=== PATIENT | male | born 1940 | race Two or more races ===

== ENCOUNTER 2018-09-24 18:32 | Inpatient (IN) | payer OTHER ==
--- NOTE | 2018-09-24 19:26 | PDOC ---
History of Present Illness - General History Source: Patient Exam Limitations: No Limitations - History of Present Illness Initial Comments: 09/24/18 20:49 The patient is a 77 year old male, with a significant PMH of HTN, Lyme disease ( diagnosed in May) and enlarged prostate, who presents to the emergency department with an episode of vertigo that occurred 2 hours ago. The patient states he bent down to get something in the bathroom when he suddenly felt like the whole room was spinning. The patient admits to losing consciousness for a few seconds, falling and apparently hitting right sided body something within the bathroom. Family found patient conscious without evidence of seizure activity or incontinence. He experienced 1 episode of vomiting after the incident. The patient states this has never happened to him before and is currently complaining of right sided rib pain. He mentions he usually takes aspirin (81 mg) everyday but didnt take it today. The patient denies chest pain, shortness of breath and headache. Denies fever, chills, nausea, vomit, diarrhea and constipation. Allergies: NKDA Past surgical history: None reported Social history: None reported PCP: None reported <Kimberly Gonzalez - Last Filed: 09/24/18 21:53> <Kristen Gil - Last Filed: 09/25/18 00:40> - General Chief Complaint: Lightheaded Stated Complaint: DIZZY Time Seen by Provider: 09/24/18 19:24 Past History <Kimberly Gonzalez - Last Filed: 09/24/18 21:53> - Past Medical History COPD: No Diabetes: Yes Disorders: Yes (BPH) HTN: Yes - Surgical History Cholecystectomy: Yes - Suicide/Smoking/Psychosocial Hx Smoking History: Never smoked Hx Alcohol Use: Yes (RARE) Drug/Substance Use Hx: No <Kristen Gil - Last Filed: 09/25/18 00:40> - Past Medical History Allergies/Adverse Reactions: Allergies Allergy/AdvReac Type Severity Reaction Status Date / Time No Known Allergies Allergy Verified 09/24/18 18:51 Home Medications: Ambulatory Orders Aspirin [Aspirin EC] 81 mg PO HS 09/24/18 Metformin HCl [Glucophage] 500 mg PO BID 09/24/18 Tamsulosin HCl [Flomax] 0.4 mg PO BID 09/24/18 Valsartan/Hydrochlorothiazide [Valsartan-Hctz 160-25 mg Tab] 1 each PO DAILY 11/11 Review of Systems - Review of Systems Able to Perform ROS?: Yes Comments:: 09/24/18 20:50 GENERAL/CONSTITUTIONAL: No fever or chills. No weakness. HEAD, EYES, EARS, NOSE AND THROAT: No change in vision. No ear pain or discharge. No sore throat. CARDIOVASCULAR: No chest pain or shortness of breath. RESPIRATORY: No cough, wheezing, or hemoptysis. GASTROINTESTINAL: No nausea, vomiting, diarrhea or constipation. GENITOURINARY: No dysuria, frequency, or change in urination. MUSCULOSKELETAL:+Rib pain SKIN: No rash NEUROLOGIC: No headache, vertigo, loss of consciousness, or change in strength/ sensation. ENDOCRINE: No increased thirst. No abnormal weight change. HEMATOLOGIC/LYMPHATIC: No anemia, easy bleeding, or history of blood clots. ALLERGIC/IMMUNOLOGIC: No hives or skin allergy. <Kimberly Gonzalez - Last Filed: 09/24/18 21:53> *Physical Exam - Vital Signs Last Vital Signs Temp Pulse Resp BP Pulse Ox 97.4 F L 46 L 16 144/72 97 09/24/18 18:33 09/24/18 18:33 09/24/18 18:33 09/24/18 18:33 09/24/18 18:33 - Physical Exam Comments: 09/24/18 20:51 GENERAL: Awake, alert, and fully oriented, in no acute distress HEAD: Non bleeding half cm partial thickness laceration to the right forehead tenderness no ecchymosis or edema EYES: PERRLA, EOMI, sclera anicteric, conjunctiva clear ENT: Auricles normal inspection, hearing grossly normal, nares patent, oropharynx clear without exudates. Moist mucosa NECK: Normal ROM, supple, no lymphadenopathy, JVD, or masses LUNGS: +Chest wall 3 cm x 4 cm edema mild tenderness to the right posterior chest from 7-9 ribs in posterior axillary line. Breath sounds equal, clear to auscultation bilaterally. No wheezes, and no crackles HEART: Regular rate and rhythm, normal S1 and S2, no murmurs, rubs or gallops ABDOMEN:+ Notable for right upper and right flank moderate tenderness no guarding rebound or mass EXTREMITIES: Normal range of motion, no edema. No clubbing or cyanosis. No cords, erythema, or tenderness NEUROLOGICAL: Cranial nerves II through XII grossly intact. Normal speech, normal gait SKIN: Warm, Dry, normal turgor, no rashes or lesions noted. <Kimberly Gonazlez - Last Filed: 09/24/18 21:53> - Vital Signs Last Vital Signs Temp Pulse Resp BP Pulse Ox 97.4 F L 46 L 16 144/72 97 09/24/18 18:33 09/24/18 18:33 09/24/18 18:33 09/24/18 18:33 09/24/18 18:33 <Kristen Gil - Last Filed: 09/25/18 00:40> Moderate Sedation - Procedure Monitoring Vital Signs: Procedure Monitoring Vital Signs Temperature 97.4 F L 09/24/18 18:33 Pulse Rate 46 L 09/24/18 18:33 Respiratory Rate 16 09/24/18 18:33 Blood Pressure 144/72 09/24/18 18:33 O2 Sat by Pulse Oximetry (%) 97 09/24/18 18:33 <Kimberly Gonzalez - Last Filed: 09/24/18 21:53> - Procedure Monitoring Vital Signs: Procedure Monitoring Vital Signs Temperature 97.4 F L 09/24/18 18:33 Pulse Rate 46 L 09/24/18 18:33 Respiratory Rate 16 09/24/18 18:33 Blood Pressure 144/72 09/24/18 18:33 O2 Sat by Pulse Oximetry (%) 97 09/24/18 18:33 <Kristen Gil - Last Filed: 09/25/18 00:40> ED Treatment Course - LABORATORY CBC & Chemistry Diagram: 09/24/18 19:30 09/24/18 19:30 - ADDITIONAL ORDERS Additional order review: Laboratory Results 09/24/18 09/24/18 09/24/18 20:00 19:30 19:30 Sodium 135 L Potassium 3.8 Chloride 104 Carbon Dioxide 25 Anion Gap 6 L BUN 25 H Creatinine 0.9 Creat Clearance w eGFR > 60 Random Glucose 152 H Calcium 8.9 Total Bilirubin 0.5 AST 32 ALT 28 Alkaline Phosphatase 52 Creatine Kinase 66 Troponin I < 0.03 Total Protein 5.7 L Albumin 3.6 Urine Color Yellow Urine Appearance Cloudy Urine pH 6.5 Ur Specific [place] >= 1.030 Urine Protein 2+ H Urine Glucose (UA) Negative Urine Ketones Trace Urine Blood 3+ H Urine Nitrite Negative Urine Bilirubin Negative Urine Urobilinogen 1.0 Ur Leukocyte Esterase Negative Urine RBC >100 Urine WBC 2-5 Ur Epithelial Cells Few 09/24/18 19:30 RBC 4.80 MCV 89.6 MCHC 33.8 RDW 13.2 MPV 9.7 Neutrophils % 80.2 Lymphocytes % 10.8 Monocytes % 7.5 Eosinophils % 1.2 Basophils % 0.3 <Kimberly Gonzalez - Last Filed: 09/24/18 21:53> - LABORATORY CBC & Chemistry Diagram: 09/24/18 19:30 09/24/18 19:30 <Kristen Gil - Last Filed: 09/25/18 00:40> Medical Decision Making - Medical Decision Making Documentation has been prepared under my direction and personally reviewed by me in its entirety. I attest that this documented accurately reflects all work, treatment, procedures and medical decision making performed by me. As noted above, this 77-year-old man with a history of hypertension/Lyme disease (diagnosed and treated a few months ago)/BPH was brought in by ambulance after an episode of vertigo and fall in the bathroom of his daughter' s home (patient lives in [place] and is visiting the area). He had a brief LOC after this severe vertigo; family did not witness the episode but was at patient 's side very quickly. He had regained consciousness prior to their arrival. No incontinence or tonic-clonic movements noted. Patient was episode of vomiting after the incident. He states that vertigo resolved very quickly ( prior to arrival of EMS). Patient's only complaint is right lower posterior back/flank discomfort. Exam as noted. 12-lead electrocardiogram is performed and evaluated by me: Sinus bradycardia at 51 bpm; intervals, wave forms and axis are all normal. No evidence of acute ST or T-wave abnormalities; no evidence of cardiac arrhythmia Laboratory evaluation notable for prerenal azotemia with BUN of 25 and creatinine of 0.9. Urinalysis shows hematuria with greater than 100 RBCs per high-power field. Noncontrast head CT/chest and abdominal/pelvic CT with IV contrast ordered 09/24/18 23:[address] reveals no evidence of acute intracranial process; no skull fractures Abdominal/pelvic CT interpreted by Imaging consumer affairs director: Displaced fractures of the right ninth and 10th ribs and nondisplaced fracture of the 11th rib. There is a circumferential right renal subcapsular hematoma that is 1.5 cm thick. 09/25/18 00:[address] Cruz; patient will be admitted telemetry bed, observation status with diagnosis of syncope/multiple rib fractures/right renal hematoma <Kristen Gil - Last Filed: 09/25/18 00:40> *DC/Admit/Observation/Transfer - Attestations Scribe Attestion: 09/24/18 20:53 Documentation prepared by Kimberly Gonzalez, acting as director medical surgical for Kristen Gil MD. <Kimberly Gonzalez - Last Filed: 09/24/18 21:53> - Discharge Dispostion Decision to Admit order: Yes <Kristen Gil - Last Filed: 09/25/18 00:40> Diagnosis at time of Disposition: Multiple rib fractures Qualifiers: Encounter type: initial encounter Fracture type: closed Laterality: right Qualified Code(s): S22.41XA - Multiple fractures of ribs, right side, initial encounter for closed fracture Renal hematoma, right Qualifiers: Encounter type: initial encounter Qualified Code(s): S37.011A - Minor contusion of right kidney, initial encounter Syncope Qualifiers: Syncope type: unspecified Qualified Code(s): R55 - Syncope and collapse - Discharge Dispostion Condition at time of disposition: Stable
[2018-09-24 20:25] LABS: BASO % 0.3 % (0-2.0); EOS % 1.2 % (0-4.5); HEMOGLOBIN 14.6 GM/dl (11.7-16.9); LYMPH % 10.8 % (8-40); MCH 30.3 pg (25.7-33.7); MCHC 33.8 g/dl (32.0-35.9); MEAN CELL VOLUME 89.6 fl (80-96); MEAN PLT VOLUME 9.7 fl (7.5-11.1); MONO % 7.5 % (3.8-10.2); NEUT % 80.2 % (42.8-82.8); PLATELET COUNT 173 K/MM3 (134-434); RDW 13.2 % (11.9-15.9)
[2018-09-24 20:33] LABS: PH,URINE 6.5 (4.5-8); URINE APPEARANCE CLOUDY; URINE BILIRUBIN Negative (NEGATIVE); URINE COLOR Yellow; URINE GLUCOSE (UA) Negative (NEGATIVE); URINE KETONE Trace (NEGATIVE); URINE LEUK ESTERASE Negative (NEGATIVE); URINE NITRITE Negative (NEGATIVE); URINE PROTEIN 2+ (NEGATIVE)
[2018-09-24 20:37] LABS: ALBUMIN 3.6 g/dl (3.5-5.0); ALK PHOS 52 U/L (32-92); ANION GAP 6 MMOL/L (8-16); BILIRUBIN,TOTAL 0.5 mg/dl (0.2-1.0); BLOOD UREA NITROGEN 25 mg/dl (7-18); CALCIUM 8.9 mg/dl (8.4-10.2); CHLORIDE 104 mmol/L (98-107); CO2 25 mmol/L (22-28); CREATININE 0.9 mg/dl (0.6-1.3); GLUCOSE,RANDOM 152 mg/dl (74-106); POTASSIUM 3.8 mmol/L (3.5-5.1); SGOT/AST 32 U/L (10-42); SGPT/ALT 28 U/L (10-40); SODIUM 135 mmol/L (136-145); TOT PROT 5.7 g/dl (6.4-8.3)
[2018-09-24 20:40] LABS: URINE RBC >100 /hpf (0-3)
[2018-09-24 20:41] LABS: EPI CELLS FEW /HPF
[2018-09-24] MEDS ORDERED: SODIUM CHLORIDE 500 ML IV STA (20:54)
[2018-09-25 01:06] VITALS: BMI 23.3
[2018-09-25] MEDS ORDERED: SODIUM CHLORIDE 1,000 ML IV SCH (02:15)
[2018-09-25] MEDS: traMADol HCL 50 MG TABLET PO PRN (04:45)
[2018-09-25] MEDS ORDERED: INSULIN SLIDING SCALE (NOVOLOG) 1 VIAL SQ SCH (07:00)
--- NOTE | 2018-09-25 07:14 | CON.CARD ---
Consult Consult Specialty:: Cardiology - History of Present Illness History of Present Illness: The patient is a 77 year old male, with a significant PMH of HTN, Lyme disease ( diagnosed in May) and enlarged prostate, who presents to the emergency department with an episode of vertigo that occurred 2 hours ago. The patient states he bent down to get something in the bathroom when he suddenly felt like the whole room was spinning. The patient admits to losing consciousness for a few seconds, falling and apparently hitting right sided body something within the bathroom. Family found patient conscious without evidence of seizure activity or incontinence. He experienced 1 episode of vomiting after the incident. The patient states this has never happened to him before and is currently complaining of right sided rib pain. He mentions he usually takes aspirin (81 mg) everyday but didnt take it today. The patient denies chest pain, shortness of breath and headache. Denies fever, chills, nausea, vomit, diarrhea and constipation. Allergies: NKDA Past surgical history: None reported Social history: None reported PCP: None reported - History Source History Provided By: Patient, Family Member, Medical Record - Past Medical History Cardio/Vascular: Yes: HTN Endocrine: Yes: Diabetes Mellitus - Alcohol/Substance Use Hx Alcohol Use: Yes (RARE) - Smoking History Smoking history: Never smoked Have you smoked in the past 12 months: No Home Medications - Allergies Allergies/Adverse Reactions: Allergies Allergy/AdvReac Type Severity Reaction Status Date / Time No Known Allergies Allergy Verified 09/24/18 18:51 - Home Medications Home Medications: Ambulatory Orders Aspirin [Aspirin EC] 81 mg PO HS 09/24/18 Metformin HCl [Glucophage] 500 mg PO BID 09/24/18 Tamsulosin HCl [Flomax] 0.4 mg PO BID 09/24/18 Valsartan/Hydrochlorothiazide [Valsartan-Hctz 160-25 mg Tab] 1 each PO DAILY 11/11 Review of Systems - Review of Systems Constitutional: reports: No Symptoms Eyes: reports: No Symptoms HENT: reports: No Symptoms Neck: reports: No Symptoms Cardiovascular: reports: No Symptoms Gastrointestinal: reports: No Symptoms Genitourinary: reports: No Symptoms Breasts: reports: No Symptoms Reported Musculoskeletal: reports: No Symptoms Integumentary: reports: No Symptoms Neurological: reports: Syncope Endocrine: reports: No Symptoms Hematology/Lymphatic: reports: No Symptoms Psychiatric: reports: No Symptoms Vital Signs: Vital Signs Temperature 98.6 F 09/25/18 07:06 Pulse Rate 63 09/25/18 07:06 Respiratory Rate 18 09/25/18 07:06 Blood Pressure 108/54 L 09/25/18 07:06 O2 Sat by Pulse Oximetry (%) 97 09/25/18 01:52 Constitutional: Yes: Well Nourished, No Distress, Calm Eyes: Yes: WNL, Conjunctiva Clear, EOM Intact HENT: Yes: WNL, Atraumatic, Normocephalic Neck: Yes: WNL, Supple, Trachea Midline Respiratory: Yes: WNL, Regular, CTA Bilaterally Gastrointestinal: Yes: WNL, Normal Bowel Sounds Renal/: Yes: WNL Cardiovascular: Yes: WNL, Regular Rate and Rhythm Musculoskeletal: Yes: WNL Extremities: Yes: WNL Integumentary: Yes: WNL Neurological: Yes: WNL, Alert, Oriented ...Motor Strength: WNL Psychiatric: Yes: WNL, Alert, Oriented - Other Data Labs, Other Data: CBC, BMP 09/24/18 19:30 09/24/18 19:30 Troponin, BNP 09/24/18 19:30 Troponin I < 0.03 Troponin, BNP 09/24/18 19:30 Troponin I < 0.03 Imaging - Results Chest X-ray: Image Reviewed (no i/e) EKG: Image Reviewed (s bradycardia at 51 o/w wnl) Problem List - Problems (1) Multiple rib fractures Code(s): S22.49XA - MULTIPLE FRACTURES OF RIBS, UNSP SIDE, INIT FOR CLOS FX Qualifiers: Encounter type: initial encounter Fracture type: closed Laterality: right Qualified Code(s): S22.41XA - Multiple fractures of ribs, right side, initial encounter for closed fracture (2) Renal hematoma, right Code(s): S37.011A - MINOR CONTUSION OF RIGHT KIDNEY, INITIAL ENCOUNTER Qualifiers: Encounter type: initial encounter Qualified Code(s): S37.011A - Minor contusion of right kidney, initial encounter (3) Syncope Code(s): R55 - SYNCOPE AND COLLAPSE Qualifiers: Syncope type: unspecified Qualified Code(s): R55 - Syncope and collapse Assessment/Plan syncope - reports bending down to bulk picker something from the floor in the bathroom, than getting up than feeling progressively more dizzy/vertigo and than fainting bradycardia on baseline ekg and telemetry multiple rib fx dm htn plan neuro consult c. duplex telemetry echo lexiscan mibi
[2018-09-25 09:23] LABS: HEMATOCRIT 36.4 % (35.4-49); HEMOGLOBIN 12.4 GM/dl (11.7-16.9); MCH 30.9 pg (25.7-33.7); MCHC 34.1 g/dl (32.0-35.9); MEAN CELL VOLUME 90.5 fl (80-96); MEAN PLT VOLUME 9.8 fl (7.5-11.1); PLATELET COUNT 154 K/MM3 (134-434); RBC 4.02 M/mm3 (4.00-5.60); RDW 13.4 % (11.9-15.9); WHITE BLOOD COUNT 7.3 K/mm3 (4.0-10.8)
[2018-09-25 09:43] LABS: ALBUMIN 3.2 g/dl (3.5-5.0); ALK PHOS 48 U/L (32-92); ANION GAP 9 MMOL/L (8-16); BILIRUBIN,TOTAL 1.1 mg/dl (0.2-1.0); BLOOD UREA NITROGEN 22 mg/dl (7-18); CALCIUM 8.6 mg/dl (8.4-10.2); CHLORIDE 103 mmol/L (98-107); CO2 25 mmol/L (22-28); CREATININE 0.8 mg/dl (0.6-1.3); GLUCOSE,RANDOM 122 mg/dl (74-106); MAGNESIUM 1.8 mg/dL (1.8-2.4); POTASSIUM 3.8 mmol/L (3.5-5.1); SGOT/AST 22 U/L (10-42); SGPT/ALT 23 U/L (10-40); SODIUM 137 mmol/L (136-145)
[2018-09-25] MEDS ORDERED: PATIENT'S OWN MEDICATION (NON-FORMULARY) (Valsartan/Hydrochlorothiazide [Valsartan-Hctz 16 PO SCH (10:00)
--- NOTE | 2018-09-25 10:07 | HP ---
CHIEF COMPLAINT:dizziness PCP: HISTORY OF PRESENT ILLNESS: The patient is a 77 year old male, with a significant PMH of HTN, DM, Lyme disease (diagnosed in May) and enlarged prostate, who presents to the emergency department with an episode of vertigo that occurred 2 hours ago. The patient states he bent down to get something in the bathroom when he suddenly felt like the whole room was spinning. The patient admits to losing consciousness for a few seconds, falling and apparently hitting right sided body something within the bathroom. He experienced 1 episode of vomiting after the incident. patient seen at bedside this morning, denies dizziness, sob, chest pain. Denies fever, chills, nausea, vomit, diarrhea and constipation. ER course was notable for: (1)CT abd pelvis rib fracture 9th and 10th (displaced), 11th (non-displaced) (2)Right renal subcapsular hematoma (3)no Leukocytosis Recent Travel: PAST MEDICAL HISTORY:HTN, BPH, DM, PAST SURGICAL HISTORY:Cholecystectomy Social History: Smoking:denies Alcohol:rarely Drugs:denies Family History: AllergiesNKDA No Known Allergies Allergy (Verified 09/24/18 18:51) HOME MEDICATIONS: Home Medications Medication Instructions Recorded Aspirin [Aspirin EC] 81 mg PO HS 09/24/18 Metformin HCl [Glucophage] 500 mg PO BID 09/24/18 Tamsulosin HCl [Flomax] 0.4 mg PO BID 09/24/18 Valsartan/Hydrochlorothiazide 1 each PO DAILY 09/24/18 [Valsartan-Hctz 160-25 mg Tab] REVIEW OF SYSTEMS CONSTITUTIONAL: Absent: fever, chills, diaphoresis, generalized weakness, malaise, loss of appetite, weight change HEENT: Absent: rhinorrhea, nasal congestion, throat pain, throat swelling, difficulty swallowing, mouth swelling, ear pain, eye pain, visual changes CARDIOVASCULAR: Absent: chest pain, syncope, palpitations, irregular heart rate, lightheadedness , peripheral edema RESPIRATORY: Absent: cough, shortness of breath, dyspnea with exertion, orthopnea, wheezing, stridor, hemoptysis GASTROINTESTINAL: Absent: abdominal pain, abdominal distension, nausea, vomiting, diarrhea, constipation, melena, hematochezia GENITOURINARY: Absent: dysuria, frequency, urgency, hesitancy, hematuria, flank pain, genital pain MUSCULOSKELETAL: Absent: myalgia, arthralgia, joint swelling, back pain, neck pain SKIN: Absent: rash, itching, pallor HEMATOLOGIC/IMMUNOLOGIC: Absent: easy bleeding, easy bruising, lymphadenopathy, frequent infections ENDOCRINE: Absent: unexplained weight gain, unexplained weight loss, heat intolerance, cold intolerance NEUROLOGIC: Absent: headache, focal weakness or paresthesias, dizziness, unsteady gait, seizure, mental status changes, bladder or bowel incontinence PSYCHIATRIC: Absent: anxiety, depression, suicidal or homicidal ideation, hallucinations. PHYSICAL EXAMINATION Vital Signs - 24 hr 09/24/18 09/24/18 09/24/18 18:33 21:00 21:29 Temperature 97.4 F L Pulse Rate 46 L Pulse Rate [ 55 L 56 L Apical] Respiratory 16 16 15 Rate Blood Pressure 144/72 Blood Pressure 153/80 148/80 [Left Arm] O2 Sat by Pulse 97 97 98 Oximetry (%) 09/25/18 09/25/18 09/25/18 00:33 01:52 04:33 Temperature 98.2 F 98.2 F 98.6 F Pulse Rate 62 62 54 L Pulse Rate [ Apical] Respiratory 20 20 20 Rate Blood Pressure 144/60 144/60 124/50 L Blood Pressure [Left Arm] O2 Sat by Pulse 97 97 Oximetry (%) 09/25/18 09/25/18 09/25/18 07:04 07:05 07:06 Temperature 98.6 F 98.6 F 98.6 F Pulse Rate 51 L 56 L 63 Pulse Rate [ Apical] Respiratory 18 18 18 Rate Blood Pressure 135/63 129/64 108/54 L Blood Pressure [Left Arm] O2 Sat by Pulse Oximetry (%) GENERAL: Awake, alert, and fully oriented, in no acute distress. HEAD: Normal with no signs of trauma. EYES: Pupils equal, round and reactive to light, extraocular movements intact, sclera anicteric, conjunctiva clear. No lid lag. EARS, NOSE, THROAT: Ears normal, nares patent, oropharynx clear without exudates. Moist mucous membranes. NECK: Normal range of motion, supple without lymphadenopathy, JVD, or masses. LUNGS: Breath sounds equal, clear to auscultation bilaterally. No wheezes, and no crackles. No accessory muscle use. HEART: Regular rate and rhythm, normal S1 and S2 without murmur, rub or gallop. ABDOMEN: Soft, nontender, not distended, normoactive bowel sounds, no guarding, no rebound, no masses. No hepatomegaly or splenomegaly. MUSCULOSKELETAL: Normal range of motion at all joints. No bony deformities or tenderness. No CVA tenderness. UPPER EXTREMITIES: 2+ pulses, warm, well-perfused. No cyanosis. No clubbing. No peripheral edema. LOWER EXTREMITIES: 2+ pulses, warm, well-perfused. No calf tenderness. No peripheral edema. NEUROLOGICAL: Cranial nerves II-XII intact. Normal speech. Normal gait. PSYCHIATRIC: Cooperative. Good eye contact. Appropriate mood and affect. SKIN: Warm, dry, normal turgor, no rashes or lesions noted, normal capillary refill. Laboratory Results - last 24 hr 09/24/18 09/24/18 09/24/18 19:30 19:30 19:30 WBC 7.0 RBC 4.80 Hgb 14.6 Hct 43.0 MCV 89.6 MCH 30.3 MCHC 33.8 RDW 13.2 Plt Count 173 MPV 9.7 Absolute Neuts (auto) 5.6 Neutrophils % 80.2 Lymphocytes % 10.8 Monocytes % 7.5 Eosinophils % 1.2 Basophils % 0.3 Sodium 135 L Potassium 3.8 Chloride 104 Carbon Dioxide 25 Anion Gap 6 L BUN 25 H Creatinine 0.9 Creat Clearance w eGFR > 60 Random Glucose 152 H Calcium 8.9 Magnesium Total Bilirubin 0.5 AST 32 ALT 28 Alkaline Phosphatase 52 Creatine Kinase 66 Troponin I < 0.03 Total Protein 5.7 L Albumin 3.6 Urine Color Urine Appearance Urine pH Ur Specific [place] Urine Protein Urine Glucose (UA) Urine Ketones Urine Blood Urine Nitrite Urine Bilirubin Urine Urobilinogen Ur Leukocyte Esterase Urine RBC Urine WBC Ur Epithelial Cells 09/24/18 09/25/18 09/25/18 20:00 06:20 06:20 WBC 7.3 RBC 4.02 Hgb 12.4 Hct 36.4 D MCV 90.5 MCH 30.9 MCHC 34.1 RDW 13.4 Plt Count 154 MPV 9.8 Absolute Neuts (auto) Neutrophils % Lymphocytes % Monocytes % Eosinophils % Basophils % Sodium 137 Potassium 3.8 Chloride 103 Carbon Dioxide 25 Anion Gap 9 BUN 22 H Creatinine 0.8 Creat Clearance w eGFR > 60 Random Glucose 122 H Calcium 8.6 Magnesium 1.8 Total Bilirubin 1.1 H AST 22 D ALT 23 Alkaline Phosphatase 48 Creatine Kinase Troponin I Total Protein 5.0 L Albumin 3.2 L Urine Color Yellow Urine Appearance Cloudy Urine pH 6.5 Ur Specific [place] >= 1.030 Urine Protein 2+ H Urine Glucose (UA) Negative Urine Ketones Trace Urine Blood 3+ H Urine Nitrite Negative Urine Bilirubin Negative Urine Urobilinogen 1.0 Ur Leukocyte Esterase Negative Urine RBC >100 Urine WBC 2-5 Ur Epithelial Cells Few ASSESSMENT/PLAN: Aurelio Franklin is a 77 year old male, with a significant PMH of HTN, DM, Lyme disease (diagnosed in May) and enlarged prostate, admitted under observation for Admitting Diagnosis Syncope Right Rib Fracture Active Problems BPH HTN DM #Syncope -tele monitoring -Cardio consult -Echo ordered -monitor labs -CT head no acute fx, intracanial process -IVF #Right rib fx 2/2 fall -inc spirometer -CT Scan abd/pelvis displaced 9 &10th fx, non-displaced 11th rib fx -pain mgt -OOB to chair #Right renal subcapsular hematoma likely constusion from fall -monitor -heparin on hold #HTN -resume home med #BPH -on flomax #DM -fingerstick monitoring -metformin on hold -ISC Disposition Requires to be observatin, Full Code Visit type - Emergency Visit Emergency Visit: Yes ED Registration Date: 09/25/18 Care time: The patient presented to the Emergency Department on the above date and was hospitalized for further evaluation of their emergent condition. - New Patient This patient is new to me today: Yes Date on this admission: 09/25/18 - Critical Care Critical Care patient: No
[2018-09-25] MEDS: INSULIN SLIDING SCALE (NOVOLOG) 1 VIAL SQ SCH ×4 (11:00→21:16)
[2018-09-25] MEDS: HYDROCHLOROTHIAZIDE 25 MG TABLET (FP) PO SCH (11:10)
[2018-09-25] MEDS: VALSARTAN 160 MG TABLET (UD) PO SCH (11:10)
[2018-09-25] MEDS: TAMSULOSIN HCL 0.4 MG CAP PO SCH ×2 (11:10→21:05)
[2018-09-25] MEDS ORDERED: ASPIRIN COATED 81 MG TABLET.EC PO SCH (22:00)
[2018-09-26] MEDS: traMADol HCL 50 MG TABLET PO PRN ×2 (05:47→13:08)
[2018-09-26] MEDS: INSULIN SLIDING SCALE (NOVOLOG) 1 VIAL SQ SCH ×4 (07:11→21:21)
[2018-09-26 08:37] LABS: URINE APPEARANCE CLEAR; URINE BILIRUBIN NEGATIVE (NEGATIVE); URINE COLOR YELLOW; URINE GLUCOSE (UA) NEGATIVE (NEGATIVE); URINE KETONE NEGATIVE (NEGATIVE)
[2018-09-26 08:38] LABS: PH,URINE 5.5 (4.5-8); URINE LEUK ESTERASE NEGATIVE (NEGATIVE); URINE NITRITE NEGATIVE (NEGATIVE); URINE PROTEIN NEGATIVE (NEGATIVE); URINE UROBILINOGEN 0.2 (0.2-1.0)
[2018-09-26] MEDS: TAMSULOSIN HCL 0.4 MG CAP PO SCH ×2 (08:40→21:21)
[2018-09-26 09:15] LABS: ANION GAP 6 MMOL/L (8-16); BLOOD UREA NITROGEN 17 mg/dl (7-18); CALCIUM 8.9 mg/dl (8.4-10.2); CHLORIDE 102 mmol/L (98-107); CO2 26 mmol/L (22-28); CREATININE 0.8 mg/dl (0.6-1.3); GLUCOSE,RANDOM 159 mg/dl (74-106); MAGNESIUM 1.9 mg/dL (1.8-2.4); POTASSIUM 3.8 mmol/L (3.5-5.1); SODIUM 134 mmol/L (136-145)
[2018-09-26 09:21] LABS: BASO % 0.3 % (0-2.0); EOS % 1.8 % (0-4.5); HEMATOCRIT 40.8 % (35.4-49); HEMOGLOBIN 13.7 GM/dl (11.7-16.9); LYMPH % 20.6 % (8-40); MCH 30.6 pg (25.7-33.7); MCHC 33.7 g/dl (32.0-35.9); MEAN CELL VOLUME 90.9 fl (80-96); MEAN PLT VOLUME 9.1 fl (7.5-11.1); MONO % 9.1 % (3.8-10.2); NEUT % 68.2 % (42.8-82.8); PLATELET COUNT 166 K/MM3 (134-434); RBC 4.49 M/mm3 (4.00-5.60); RDW 13.1 % (11.9-15.9); WHITE BLOOD COUNT 7.1 K/mm3 (4.0-10.8)
[2018-09-26 09:21] LABS: EPI CELLS FEW /HPF; URINE BACTERIA NONE SEEN /hpf (NEGATIVE); URINE WBC 0-3 (0-2)
[2018-09-26 09:23] LABS: CHOLESTEROL 142 mg/dl; HDL CHOLESTEROL 56 mg/dl (29-89); LDL CHOLESTEROL (ONLY DFH) 71 mg/dl; TRIGLYCERIDES 73 mg/dl (35-160)
[2018-09-26 09:48] LABS: ACTIVATED PTT 26.3 SECONDS (25.2-36.5)
[2018-09-26 09:53] LABS: INR 1.16 (0.82-1.09)
[2018-09-26] MEDS: HYDROCHLOROTHIAZIDE 25 MG TABLET (FP) PO SCH (09:55)
[2018-09-26] MEDS: VALSARTAN 160 MG TABLET (UD) PO SCH (09:55)
--- NOTE | 2018-09-26 10:01 | PN ---
Physical Exam: SUBJECTIVE: Patient seen and examined at bedside. Pain is better after oxycodone and tylenol. OBJECTIVE: Vital Signs Period Temp Pulse Resp BP Sys/Rob Pulse Ox Last 24 Hr 98.5 F-99.1 F 51-68 16-19 115-154/52-76 95-97 GENERAL: The patient is awake, alert, and fully oriented, in no acute distress. LUNGS: Breath sounds equal, clear to auscultation bilaterally, no wheezes, no crackles HEART: Regular rate and rhythm, S1, S2 ABDOMEN: Soft, nontender, nondistended EXTREMITIES: 2+ pulses, warm, well-perfused, no edema. NEUROLOGICAL: Cranial nerves II through XII grossly intact. Normal speech Laboratory Results - last 24 hr 09/25/18 09/25/18 09/26/18 06:45 21:07 05:44 WBC RBC Hgb Hct MCV MCH MCHC RDW Plt Count MPV Absolute Neuts (auto) Neutrophils % Lymphocytes % Monocytes % Eosinophils % Basophils % PT with INR INR PTT (Actin FS) Sodium Potassium Chloride Carbon Dioxide Anion Gap BUN Creatinine Creat Clearance w eGFR POC Glucometer 207 175 Random Glucose Calcium Magnesium Troponin I Triglycerides Cholesterol Total LDL Cholesterol HDL Cholesterol Urine Color Yellow Urine Appearance Clear Urine pH 5.5 Ur Specific [place] 1.015 Urine Protein Negative Urine Glucose (UA) Negative Urine Ketones Negative Urine Blood 3+ H Urine Nitrite Negative Urine Bilirubin Negative Urine Urobilinogen 0.2 Ur Leukocyte Esterase Negative Urine RBC 5-10 Urine WBC 0-3 Ur Epithelial Cells Few Urine Bacteria None seen 09/26/18 09/26/18 09/26/18 08:00 08:23 08:23 WBC 7.1 RBC 4.49 Hgb 13.7 Hct 40.8 MCV 90.9 MCH 30.6 MCHC 33.7 RDW 13.1 Plt Count 166 MPV 9.1 Absolute Neuts (auto) 4.9 Neutrophils % 68.2 Lymphocytes % 20.6 D Monocytes % 9.1 Eosinophils % 1.8 Basophils % 0.3 PT with INR INR PTT (Actin FS) Sodium 134 L Potassium 3.8 Chloride 102 Carbon Dioxide 26 Anion Gap 6 L BUN 17 Creatinine 0.8 Creat Clearance w eGFR > 60 POC Glucometer Random Glucose 159 H D Calcium 8.9 Magnesium 1.9 Troponin I < 0.03 Triglycerides Cholesterol Total LDL Cholesterol HDL Cholesterol Urine Color Urine Appearance Urine pH Ur Specific [place] Urine Protein Urine Glucose (UA) Urine Ketones Urine Blood Urine Nitrite Urine Bilirubin Urine Urobilinogen Ur Leukocyte Esterase Urine RBC Urine WBC Ur Epithelial Cells Urine Bacteria 09/26/18 09/26/18 08:23 08:23 WBC RBC Hgb Hct MCV MCH MCHC RDW Plt Count MPV Absolute Neuts (auto) Neutrophils % Lymphocytes % Monocytes % Eosinophils % Basophils % PT with INR 13.0 INR 1.16 PTT (Actin FS) 26.3 Sodium Potassium Chloride Carbon Dioxide Anion Gap BUN Creatinine Creat Clearance w eGFR POC Glucometer Random Glucose Calcium Magnesium Troponin I Triglycerides 73 Cholesterol 142 Total LDL Cholesterol 71 HDL Cholesterol 56 Urine Color Urine Appearance Urine pH Ur Specific [place] Urine Protein Urine Glucose (UA) Urine Ketones Urine Blood Urine Nitrite Urine Bilirubin Urine Urobilinogen Ur Leukocyte Esterase Urine RBC Urine WBC Ur Epithelial Cells Urine Bacteria Current Medications Generic Name Dose Route Start Last Admin Trade Name Freq PRN Reason Stop Dose Admin Acetaminophen 650 mg 09/26/18 15:10 09/26/18 15:56 Tylenol - PO 650 mg Q6H PRN Administration PAIN LEVEL 6-10 Hydrochlorothiazide 25 mg 09/25/18 10:00 09/26/18 09:55 Hctz - PO 25 mg DAILY STEVEN Administration Insulin Aspart 1 vial 09/25/18 07:00 Novolog Vial Sliding Scale - SQ ACHS [facility] Protocol Oxycodone HCl 5 mg 09/26/18 16:59 Roxicodone - PO Q6H PRN PAIN LEVEL 6-10 Tamsulosin HCl 0.4 mg 09/25/18 08:30 09/26/18 21:21 Flomax - PO 0.4 mg BID@0830,2200 STEVEN Administration Valsartan 160 mg 09/25/18 10:00 09/26/18 09:55 Diovan - PO 160 mg DAILY STEVEN Administration ASSESSMENT/PLAN 77 year-old male with a PMH significant for HTN, enlarged prostate and recent Lyme's disease. Admitted for multiple rib fractures following a syncopal episode and fall at home. Syncope --serial troponins negative --US carotids: no hemodynamically significant stenosis --09/26 Echo: LV normal, EF 60-65%, RV normal; mild TR; pHTN --seen and evaluated by cardiology, plan is for persantine stress, but will need urology evaluation first Multiple rib fractures --CT: acute displaced fractures right 9, 10, 11 posteriorly, and right 8,9 laterally; trace right pleural effusion --ultram not sufficient; better relief with oxycodone + tylenol --binder --bowel regimen Right renal hematoma Possible right renal cortex laceration Hematuria --CT: acute right renal hematoma 1.5cm thickness; 0.9cm focus right renal cortex may be a laceration, no definite contrast extravasation --hematuria resolved on repeat UA --h/h stable --urology consult pending Hypertension --continue valsartan, HCTZ Visit type - Emergency Visit Emergency Visit: Yes ED Registration Date: 09/25/18 Care time: The patient presented to the Emergency Department on the above date and was hospitalized for further evaluation of their emergent condition. - New Patient This patient is new to me today: Yes Date on this admission: 09/27/18 - Critical Care Critical Care patient: No
--- NOTE | 2018-09-26 11:27 | EKG ---
Test Reason : Blood Pressure : / mmHG Vent. Rate : 051 BPM Atrial Rate : 051 BPM P-R Int : 162 ms QRS Dur : 094 ms QT Int : 452 ms P-R-T Axes : 048 052 042 degrees QTc Int : 416 ms SINUS BRADYCARDIA OTHERWISE NORMAL ECG NO PREVIOUS ECGS AVAILABLE Confirmed by REBECA TREVINO MD ([id number]) on 09/26/2018 11:27:04 AM Referred By: Physician Emergency Dept Confirmed By:REBECA TREVINO MD
--- NOTE | 2018-09-26 14:48 | CON.GU ---
Consult Consult Specialty:: Referred by:: Cornelius Reason for Consultation:: R renal hematoma - History of Present Illness Chief Complaint: rib fx History of Present Illness: 77 year old male, with a significant PMH of HTN, DM, Lyme disease (diagnosed in May) and enlarged prostate, who presents to the emergency department with an episode of vertigo that occurred 2 hours ago. The patient states he bent down to get something in the bathroom when he suddenly felt like the whole room was spinning. The patient admits to losing consciousness for a few seconds, falling and apparently hitting right sided body something within the bathroom. He experienced 1 episode of vomiting after the incident as well as gross hematuria x 1 episode. patient seen at bedside this morning, denies dizziness, sob, chest pain. Denies fever, chills, nausea, vomit, diarrhea and constipation. ER course was notable for: (1)CT abd pelvis rib fracture 9th and 10th (displaced), 11th (non-displaced) (2)Right renal subcapsular hematoma (3)no Leukocytosis - History Source History Provided By: Patient, Family Member, Medical Record Limitations to Obtaining History: No Limitations - Past Medical History Cardio/Vascular: Yes: HTN Renal/: Yes: Hematuria Endocrine: Yes: Diabetes Mellitus - Alcohol/Substance Use Hx Alcohol Use: Yes (RARE) - Smoking History Smoking history: Never smoked Have you smoked in the past 12 months: No Home Medications - Allergies Allergies/Adverse Reactions: Allergies Allergy/AdvReac Type Severity Reaction Status Date / Time No Known Allergies Allergy Verified 09/24/18 18:51 - Home Medications Home Medications: Ambulatory Orders Aspirin [Aspirin EC] 81 mg PO HS 09/24/18 Metformin HCl [Glucophage] 500 mg PO BID 09/24/18 Tamsulosin HCl [Flomax] 0.4 mg PO BID 09/24/18 Valsartan/Hydrochlorothiazide [Valsartan-Hctz 160-25 mg Tab] 1 each PO DAILY 11/11 Physical Exam- Vital Signs: Vital Signs Temperature 97.7 F 09/26/18 10:00 Pulse Rate 57 L 09/26/18 13:16 Respiratory Rate 18 09/26/18 10:00 Blood Pressure 130/62 09/26/18 13:16 O2 Sat by Pulse Oximetry (%) 96 09/26/18 10:00 Renal/: Yes: CVA Tenderness - Right Kidneys: Yes: FLank Pain Right Labs: CBC, BMP 09/26/18 08:23 09/26/18 08:23 Imaging - Results Cat Scan: Report Reviewed, Image Reviewed Problem List - Problems (1) Hematuria Assessment/Plan: resolved Code(s): R31.9 - HEMATURIA, UNSPECIFIED Qualifiers: Hematuria type: gross Qualified Code(s): R31.0 - Gross hematuria (2) Renal hematoma, right Assessment/Plan: f/u renal u/s as outpt Code(s): S37.011A - MINOR CONTUSION OF RIGHT KIDNEY, INITIAL ENCOUNTER Qualifiers: Encounter type: initial encounter Qualified Code(s): S37.011A - Minor contusion of right kidney, initial encounter
[2018-09-26] MEDS ORDERED: oxyCODONE HCL 5 MG TABLET PO ONE (15:09)
[2018-09-26] MEDS ORDERED: ACETAMINOPHEN 325 MG TABLET (FP) PO PRN (15:10)
--- NOTE | 2018-09-26 16:12 | PN ---
Progress Note, Physician History of Present Illness: The patient is a 77 year old male, with a significant PMH of HTN, Lyme disease ( diagnosed in May) and enlarged prostate, who presents to the emergency department with an episode of vertigo that occurred 2 hours ago. The patient states he bent down to get something in the bathroom when he suddenly felt like the whole room was spinning. The patient admits to losing consciousness for a few seconds, falling and apparently hitting right sided body something within the bathroom. Family found patient conscious without evidence of seizure activity or incontinence. He experienced 1 episode of vomiting after the incident. The patient states this has never happened to him before and is currently complaining of right sided rib pain. He mentions he usually takes aspirin (81 mg) everyday but didnt take it today. The patient denies chest pain, shortness of breath and headache. Denies fever, chills, nausea, vomit, diarrhea and constipation. Allergies: NKDA Past surgical history: None reported Social history: None reported PCP: None reported - Current Medication List Current Medications: Active Medications Acetaminophen (Tylenol -) 650 mg PO Q6H PRN PRN Reason: PAIN LEVEL 1-5 Last Admin: 09/26/18 15:56 Dose: 650 mg Hydrochlorothiazide (Hctz -) 25 mg PO DAILY [facility] Last Admin: 09/26/18 09:55 Dose: 25 mg Insulin Aspart (Novolog Vial Sliding Scale -) 1 vial SQ [facility]; Protocol Last Admin: 09/26/18 15:54 Dose: Not Given Oxycodone HCl (Roxicodone -) 5 mg PO ONCE ONE Stop: 09/26/18 15:10 Last Admin: 09/26/18 15:16 Dose: 5 mg Tamsulosin HCl (Flomax -) 0.4 mg PO BID@0830,2200 [facility] Last Admin: 09/26/18 08:40 Dose: 0.4 mg Tramadol HCl (Ultram -) 50 mg PO Q4H PRN PRN Reason: PAIN LEVEL 6-10 Last Admin: 09/26/18 13:08 Dose: 50 mg Valsartan (Diovan -) 160 mg PO DAILY [facility] Last Admin: 09/26/18 09:55 Dose: 160 mg - Objective Vital Signs: Vital Signs Temperature 98.0 F 09/26/18 14:00 Pulse Rate 58 L 09/26/18 14:00 Respiratory Rate 18 09/26/18 14:00 Blood Pressure 120/66 09/26/18 14:00 O2 Sat by Pulse Oximetry (%) 96 09/26/18 10:00 Eyes: Yes: WNL, Conjunctiva Clear, EOM Intact HENT: Yes: WNL, Atraumatic, Normocephalic Neck: Yes: WNL, Supple, Trachea Midline Cardiovascular: Yes: WNL, Regular Rate and Rhythm Respiratory: Yes: WNL, Regular, CTA Bilaterally Gastrointestinal: Yes: WNL, Normal Bowel Sounds Genitourinary: Yes: WNL Musculoskeletal: Yes: WNL Extremities: Yes: WNL Edema: No Integumentary: Yes: WNL Neurological: Yes: WNL, Alert, Oriented ...Motor Strength: WNL Psychiatric: Yes: WNL Labs: CBC, BMP 09/26/18 08:23 09/26/18 08:23 INR, PTT INR 1.16 (0.82-1.09) 09/26/18 08:23 Problem List - Problems (1) Multiple rib fractures Code(s): S22.49XA - MULTIPLE FRACTURES OF RIBS, UNSP SIDE, INIT FOR CLOS FX Qualifiers: Encounter type: initial encounter Fracture type: closed Laterality: right Qualified Code(s): S22.41XA - Multiple fractures of ribs, right side, initial encounter for closed fracture (2) Renal hematoma, right Code(s): S37.011A - MINOR CONTUSION OF RIGHT KIDNEY, INITIAL ENCOUNTER Qualifiers: Encounter type: initial encounter Qualified Code(s): S37.011A - Minor contusion of right kidney, initial encounter (3) Syncope Code(s): R55 - SYNCOPE AND COLLAPSE Qualifiers: Syncope type: unspecified Qualified Code(s): R55 - Syncope and collapse Assessment/Plan syncope - reports bending down to flower picker something from the floor in the bathroom, than getting up than feeling progressively more dizzy/vertigo and than fainting bradycardia on baseline ekg and telemetry multiple rib fx dm htn renal hematoma c. duplex - no occlusion or stenosis plan; neuro consult telemetry echo lexiscan mibi
--- NOTE | 2018-09-26 16:50 | ECHO ---
Name: JYOTHI SULLIVAN Exam:Adult Echocardiogram Study Date: 09/26/2018 12:33 PM Age: 77 yrs Reason For Study: HTN Height: 70 in Weight: 161 lb BSA: 1.9 m2 MMode/2D Measurements & Calculations IVSd: 3.1 cm Ao root diam: 3.6 cm LVIDd: 3.8 cm LA dimension: 2.4 cm LVIDs: 2.9 cm LVPWd: 1.0 cm EDV(Teich): 63.9 ml ESV(Teich): 32.4 ml Doppler Measurements & Calculations MV E max sheba: 58.2 cm/sec MV A max sheba: 72.0 cm/sec MV dec slope: 275.0 cm/sec2 MV E/A: 0.81 MR max sheba: 448.0 cm/sec TR max sheba: 252.6 cm/sec MR max P.3 mmHg TR max P.6 mmHg PI end-d sheba: 64.1 cm/sec Procedure A complete two-dimensional transthoracic echocardiogram was performed (2D, M-mode, Doppler and color flow Doppler). Left Ventricle The left ventricle is normal in size. Left ventricular systolic function is normal. Ejection Fraction = 60- 65%. No regional wall motion abnormalities noted. Right Ventricle The right ventricle is normal size. The right ventricular systolic function is normal. Atria The left atrial size is normal. Right atrial size is normal. Mitral Valve There is mild mitral annular calcification. There is no mitral regurgitation noted. Tricuspid Valve The tricuspid valve is normal in structure and function. There is mild tricuspid regurgitation. Pulmo nary artery systolic pressure is at least 31 mmHg assuming RA pressure of 3 mmHg. Aortic Valve The aortic valve is normal in structure and function. No aortic regurgitation is present. Pulmonic Valve The pulmonic valve is not well visualized. Great Vessels The aortic root is normal size. Pericardium/Pleura There is no pericardial effusion. Interpretation Summary The left ventricle is normal in size. Left ventricular systolic function is normal. No regional wall motion abnormalities noted. Ejection Fraction = 60-65%. The right ventricular systolic function is normal. The left atrial size is normal. Right atrial size is normal. There is mild mitral annular calcification. There is mild tricuspid regurgitation. Pulmonary artery systolic pressure is at least 31 mmHg assuming RA pressure of 3 mmHg There is no pericardial effusion. Previous study is not available for comparison Maksim Penny MD 09/26/2018 04:50 PM
[2018-09-26] MEDS ORDERED: oxyCODONE HCL 5 MG TABLET PO PRN (16:59)
[2018-09-27] MEDS: INSULIN SLIDING SCALE (NOVOLOG) 1 VIAL SQ SCH ×5 (06:12→21:25)
--- NOTE | 2018-09-27 08:30 | PN ---
Physical Exam: SUBJECTIVE: Patient seen and examined OBJECTIVE: Vital Signs Period Temp Pulse Resp BP Sys/Rob Pulse Ox Last 24 Hr 97.7 F-98.9 F 51-66 18-20 93-130/52-66 96-97 GENERAL: The patient is awake, alert, and fully oriented, in no acute distress. HEAD: Normal with no signs of trauma. EYES: PERRL, extraocular movements intact, sclera anicteric, conjunctiva clear. No ptosis. ENT: Ears normal, nares patent, oropharynx clear without exudates, moist mucous membranes. NECK: Trachea midline, full range of motion, supple. LUNGS: Breath sounds equal, clear to auscultation bilaterally, no wheezes, no crackles, no accessory muscle use. HEART: Regular rate and rhythm, S1, S2 without murmur, rub or gallop. ABDOMEN: Soft, nontender, nondistended, normoactive bowel sounds, no guarding, no rebound, no hepatosplenomegaly, no masses. EXTREMITIES: 2+ pulses, warm, well-perfused, no edema. NEUROLOGICAL: Cranial nerves II through XII grossly intact. Normal speech, gait not observed. PSYCH: Normal mood, normal affect. SKIN: Warm, dry, normal turgor, no rashes or lesions noted Laboratory Results - last 24 hr 09/25/18 09/26/18 09/26/18 06:45 08:00 08:05 WBC RBC Hgb Hct MCV MCH MCHC RDW Plt Count MPV Absolute Neuts (auto) Neutrophils % Lymphocytes % Monocytes % Eosinophils % Basophils % PT with INR INR PTT (Actin FS) Sodium Potassium Chloride Carbon Dioxide Anion Gap BUN Creatinine Creat Clearance w eGFR POC Glucometer Random Glucose Calcium Magnesium Troponin I < 0.03 Triglycerides Cholesterol Total LDL Cholesterol HDL Cholesterol Urine Color Yellow Urine Appearance Clear Urine pH 5.5 Ur Specific [place] 1.015 Urine Protein Negative Urine Glucose (UA) Negative Urine Ketones Negative Urine Blood 3+ H Urine Nitrite Negative Urine Bilirubin Negative Urine Urobilinogen 0.2 Ur Leukocyte Esterase Negative Urine RBC 5-10 Urine WBC 0-3 Ur Epithelial Cells Few Urine Bacteria None seen Blood Type O POSITIVE Antibody Screen Negative 09/26/18 09/26/18 09/26/18 08:10 08:23 08:23 WBC 7.1 RBC 4.49 Hgb 13.7 Hct 40.8 MCV 90.9 MCH 30.6 MCHC 33.7 RDW 13.1 Plt Count 166 MPV 9.1 Absolute Neuts (auto) 4.9 Neutrophils % 68.2 Lymphocytes % 20.6 D Monocytes % 9.1 Eosinophils % 1.8 Basophils % 0.3 PT with INR INR PTT (Actin FS) Sodium 134 L Potassium 3.8 Chloride 102 Carbon Dioxide 26 Anion Gap 6 L BUN 17 Creatinine 0.8 Creat Clearance w eGFR > 60 POC Glucometer Random Glucose 159 H D Calcium 8.9 Magnesium 1.9 Troponin I Triglycerides Cholesterol Total LDL Cholesterol HDL Cholesterol Urine Color Urine Appearance Urine pH Ur Specific [place] Urine Protein Urine Glucose (UA) Urine Ketones Urine Blood Urine Nitrite Urine Bilirubin Urine Urobilinogen Ur Leukocyte Esterase Urine RBC Urine WBC Ur Epithelial Cells Urine Bacteria Blood Type O POSITIVE Antibody Screen 09/26/18 09/26/18 09/27/18 08:23 08:23 06:05 WBC RBC Hgb Hct MCV MCH MCHC RDW Plt Count MPV Absolute Neuts (auto) Neutrophils % Lymphocytes % Monocytes % Eosinophils % Basophils % PT with INR 13.0 INR 1.16 PTT (Actin FS) 26.3 Sodium Potassium Chloride Carbon Dioxide Anion Gap BUN Creatinine Creat Clearance w eGFR POC Glucometer 142 Random Glucose Calcium Magnesium Troponin I Triglycerides 73 Cholesterol 142 Total LDL Cholesterol 71 HDL Cholesterol 56 Urine Color Urine Appearance Urine pH Ur Specific [place] Urine Protein Urine Glucose (UA) Urine Ketones Urine Blood Urine Nitrite Urine Bilirubin Urine Urobilinogen Ur Leukocyte Esterase Urine RBC Urine WBC Ur Epithelial Cells Urine Bacteria Blood Type Antibody Screen Active Medications Generic Name Dose Route Start Last Admin Trade Name Freq PRN Reason Stop Dose Admin Acetaminophen 650 mg 09/26/18 15:10 09/26/18 15:56 Tylenol - PO 650 mg Q6H PRN Administration PAIN LEVEL 6-10 Hydrochlorothiazide 25 mg 09/25/18 10:00 09/26/18 09:55 Hctz - PO 25 mg DAILY [facility] Administration Insulin Aspart 1 vial 09/25/18 07:00 09/27/18 06:12 Novolog Vial Sliding Scale - SQ Not Given ACHS [facility] Protocol Oxycodone HCl 5 mg 09/26/18 16:59 Roxicodone - PO Q6H PRN PAIN LEVEL 6-10 Tamsulosin HCl 0.4 mg 09/25/18 08:30 09/26/18 21:21 Flomax - PO 0.4 mg BID@0830,2200 STEVEN Administration Valsartan 160 mg 09/25/18 10:00 09/26/18 09:55 Diovan - PO 160 mg DAILY [facility] Administration ASSESSMENT/PLAN:
[2018-09-27] MEDS ORDERED: REGADENOSON 0.4 MG/5 ML PRE-FILLED SYRINGE IVPUSH ONE (10:00)
[2018-09-27] MEDS: HYDROCHLOROTHIAZIDE 25 MG TABLET (FP) PO SCH (11:30)
--- NOTE | 2018-09-27 12:05 | PN ---
Physical Exam: SUBJECTIVE: Patient seen and examined; being transferred to [facility] from for recurring syncope. He had a rapid response while down in cardiology today that was tended to by the resident team. Aparently he was in the wheelchair after being injected with the tracer and he slumped down and lost consciousness. NO seizure activity reported, no other issues. He doesn't recall exactly what happened. VS during the episode were HR of 55 and BP of 135/80 with negative orthostatic VS. Review of his chart from hospital hows that he has unremarkable labs from yesterday (labs from still pending). Tele has been unremarkable. Troponin negative x2; lipids unremarkable. CT scan with the R-subcapsular hematoma and rib fractures reviewed personally. Consulting Neurology per CV to r/o any neurogenic causes of syncope. OBJECTIVE: Vital Signs Period Temp Pulse Resp BP Sys/Rob Pulse Ox Last 24 Hr 97.2 F-98.9 F 51-66 18-20 93-140/52-69 96-97 GENERAL: The patient is awake, alert, and fully oriented, in no acute distress. Originally on NRB but transitioned off of O2 and saturating 99% on RA. HEAD: Normal with no signs of trauma. EYES: PERRL, extraocular movements intact, sclera anicteric, conjunctiva clear. No ptosis. ENT: Ears normal, nares patent, oropharynx clear without exudates, moist MM NECK: Trachea midline, full range of motion, supple. LUNGS: Breath sounds equal, clear to auscultation bilaterally, sym exp HEART: Regular rate and rhythm, S1, S2 without murmur, rub or gallop. ABDOMEN: Soft, nontender, nondistended, normoactive bowel sounds, no guarding, no rebound, no hepatosplenomegaly, no masses. EXTREMITIES: 2+ pulses, warm, well-perfused, no edema. NEUROLOGICAL: Cranial nerves II through XII grossly intact. Normal speech, gait not observed. PSYCH: Normal mood, normal affect. SKIN: Warm, dry, normal turgor, no rashes or lesions noted Laboratory Results - last 24 hr 09/27/18 09/27/18 06:05 10:39 POC Glucometer 142 178 Active Medications Generic Name Dose Route Start Last Admin Trade Name Freq PRN Reason Stop Dose Admin Acetaminophen 650 mg 09/26/18 15:10 09/26/18 15:56 Tylenol - PO 650 mg Q6H PRN Administration PAIN LEVEL 6-10 Docusate Sodium 300 mg 09/27/18 22:00 Colace - PO HS STEVEN Hydrochlorothiazide 25 mg 09/25/18 10:00 09/26/18 09:55 Hctz - PO 25 mg DAILY [facility] Administration Insulin Aspart 1 vial 09/25/18 07:00 09/27/18 06:12 Novolog Vial Sliding Scale - SQ Not Given ACHS [facility] Protocol Oxycodone HCl 5 mg 09/26/18 16:59 Roxicodone - PO Q6H PRN PAIN LEVEL 6-10 Polyethylene Glycol 17 gm 09/27/18 22:00 Miralax (For Daily Use) - PO BID STEVEN Tamsulosin HCl 0.4 mg 09/25/18 08:30 09/26/18 21:21 Flomax - PO 0.4 mg BID@0830,2200 STEVEN Administration Valsartan 160 mg 09/25/18 10:00 09/26/18 09:55 Diovan - PO 160 mg DAILY [facility]EVEN Administration ASSESSMENT/PLAN: Being formally transferred to [facility] for syncope after a Rapid Response down in Cardiology. Having the first part of his stress test done today. CV following , involving neurology. Hemodynamics stable; labs pending 1) Syncope -Recurring; cardiology and neurology following. Awaiting their input and appreciate their presence on case. Cardiology is reviewing EKG taken at the [facility]; I didn't see it personally but RR team did assess before giving to CV; will follow this test up. -HR low 50s could be contributory. Further neuro workup pending their service recs; will defer further orders to them -Monitor on telemetry -Echo, duplex reviewed. Followup on stress test. Check labs including troponin. -Fall precautions 2) Hematuria 2/2 R-subcapsular hematoma -Trend CBC; stable. Pain controlled. Due to fall 2/2 syncope 3) Rib Fractures -Ribs 9-10 displaced, 11 non-displaced. -No s/s PTX; pain controlled. Incentive spirometry 4) BPH -Continue tamsulosin 5) HTN -Negative orthostatics; continue meds as scheduled without changes 6) H/O Lyme Disease -No new issues 7) Borderline bradycardia -Trending in low 50s; manage per CV. Assess for chronotropic response. Full Code Visit type - Emergency Visit Emergency Visit: No - New Patient This patient is new to me today: No - Critical Care Critical Care patient: No
--- NOTE | 2018-09-27 13:38 | PN ---
Progress Note, Physician Chief Complaint: Pt A&OX3; is at bedside; no further dizziness; no chest pain. History of Present Illness: The patient is a 77 year old male, with a significant PMH of HTN, Lyme disease ( diagnosed in May; -->4 months of antibiotics; his believes his evergy level decreased since the diagnosis) and enlarged prostate, who presents to the emergency department with an episode of vertigo that occurred 2 hours ago. The patient states he bent down to get something in the bathroom when he suddenly felt like the whole room was spinning. The patient admits to losing consciousness for a few seconds, falling and apparently hitting right sided body something within the bathroom. Family found patient conscious without evidence of seizure activity or incontinence. He experienced 1 episode of vomiting after the incident. The patient states this has never happened to him before and is currently complaining of right sided rib pain. He mentions he usually takes aspirin (81 mg) everyday but didnt take it today. The patient denies chest pain, shortness of breath and headache. Denies fever, chills, nausea, vomit, diarrhea and constipation. Allergies: NKDA - Current Medication List Current Medications: Active Medications Acetaminophen (Tylenol -) 650 mg PO Q6H PRN PRN Reason: PAIN LEVEL 6-10 Last Admin: 09/26/18 15:56 Dose: 650 mg Docusate Sodium (Colace -) 300 mg PO [facility] Hydrochlorothiazide (Hctz -) 25 mg PO DAILY [facility] Last Admin: 09/26/18 09:55 Dose: 25 mg Insulin Aspart (Novolog Vial Sliding Scale -) 1 vial SQ [facility]; Protocol Last Admin: 09/27/18 11:00 Dose: Not Given Oxycodone HCl (Roxicodone -) 5 mg PO Q6H PRN PRN Reason: PAIN LEVEL 6-10 Polyethylene Glycol (Miralax (For Daily Use) -) 17 gm PO BID [facility] Tamsulosin HCl (Flomax -) 0.4 mg PO BID@0830,2200 [facility] Last Admin: 09/26/18 21:21 Dose: 0.4 mg Valsartan (Diovan -) 160 mg PO DAILY [facility] Last Admin: 09/26/18 09:55 Dose: 160 mg - Objective Vital Signs: Vital Signs Temperature 97.2 F L 12/04/18 11:57 Pulse Rate 54 L 09/27/18 11:57 Respiratory Rate 19 09/27/18 11:57 Blood Pressure 140/69 09/27/18 11:57 O2 Sat by Pulse Oximetry (%) 97 09/27/18 05:59 Constitutional: Yes: Well Nourished Eyes: Yes: WNL HENT: Yes: WNL Neck: Yes: WNL Cardiovascular: Yes: Bradycardia, S1, S2 Respiratory: Yes: WNL Gastrointestinal: Yes: WNL ...Rectal Exam: Yes: Deferred Genitourinary: No: Anuria Breast(s): Yes: WNL Musculoskeletal: Yes: WNL Extremities: Yes: WNL Edema: No Peripheral Pulses WNL: Yes Integumentary: Yes: WNL Neurological: Yes: WNL Psychiatric: Yes: WNL Labs: CBC, BMP 09/26/18 08:23 09/26/18 08:23 INR, PTT INR 1.16 (0.82-1.09) 09/26/18 08:23 Abnormal Lab Results 09/28/18 09/29/18 09/29/18 07:30 05:30 05:30 Monocytes % 11.0 H 11.4 H BUN 27 H Random Glucose 158 H Calcium 8.4 L Total Protein 5.5 L Albumin 3.2 L - ....Imaging Other: Image Reviewed (sinus bradyc) Problem List - Problems (1) HTN (hypertension) Assessment/Plan: On valsartan and HCTZ; lower doess today post-syncope. Code(s): I10 - ESSENTIAL (PRIMARY) HYPERTENSION (2) Multiple rib fractures Code(s): S22.49XA - MULTIPLE FRACTURES OF RIBS, UNSP SIDE, INIT FOR CLOS FX Qualifiers: Encounter type: initial encounter Fracture type: closed Laterality: right Qualified Code(s): S22.41XA - Multiple fractures of ribs, right side, initial encounter for closed fracture (3) Renal hematoma, right Code(s): S37.011A - MINOR CONTUSION OF RIGHT KIDNEY, INITIAL ENCOUNTER Qualifiers: Encounter type: initial encounter Qualified Code(s): S37.011A - Minor contusion of right kidney, initial encounter (4) Syncope Assessment/Plan: Pt has hx syncope: 1st episode 5 years ago while going to the bathroom. 2nd episode last week while brushing teeth-->fall and fractured ribs. Today, while seated in wheelchair after receiving SestaMIBI does and having had rest nuclear imaging taken he felt dizzy and "burning" on the top of his head. He slumped in the chiar; he recovered quickly. Glucose was not low; BP WNL; mild bradycardia. Plan: Carotid artery US results pending. ECHO: normal LVEF. Orthostatic vital signs. TSH. Complete Lexiscan MIBI when stable. Avoid dehydration (pt has been NPO since midnight while awaitng stress MIBI) .However, in view of several episodes of syncope, the 2nd with serious consequences, would recommend that pt be considered for coronary angiogram and EP study. Hx Lyme disease dxed earler this year after a rash was noted on right arm ( May,)-->4 months of antibiotics; his believes his energy level decreased after the diagnosis. F/u on telemetry monitroing. Code(s): R55 - SYNCOPE AND COLLAPSE Qualifiers: Syncope type: unspecified Qualified Code(s): R55 - Syncope and collapse (5) Prostate disorder Assessment/Plan: Pt has great difficulty urinating; f/u with . Code(s): N42.9 - DISORDER OF PROSTATE, UNSPECIFIED (6) Diabetes Code(s): E11.9 - TYPE 2 DIABETES MELLITUS WITHOUT COMPLICATIONS
[2018-09-27] MEDS: TAMSULOSIN HCL 0.4 MG CAP PO SCH ×2 (13:45→21:25)
[2018-09-27] MEDS ORDERED: VALSARTAN 80 MG TABLET (UD) PO ONE (15:50)
[2018-09-27] MEDS ORDERED: HYDROCHLOROTHIAZIDE 25 MG TABLET (FP) PO ONE (15:52)
[2018-09-27] MEDS: VALSARTAN 160 MG TABLET (UD) PO SCH (16:23)
[2018-09-27] MEDS: DOCUSATE SODIUM 100 MG CAPSULE (FP) PO SCH (21:24)
[2018-09-27] MEDS: POLYETHYLENE GLYCOL 3350 119 GM BTL PO SCH (21:30)
--- NOTE | 2018-09-27 21:44 | CON.NEURO ---
Consult - Past Medical History Cardio/Vascular: Yes: HTN Renal/: Yes: Hematuria Endocrine: Yes: Diabetes Mellitus - Alcohol/Substance Use Hx Alcohol Use: Yes (RARE) - Smoking History Smoking history: Never smoked Have you smoked in the past 12 months: No Home Medications - Allergies Allergies/Adverse Reactions: Allergies Allergy/AdvReac Type Severity Reaction Status Date / Time No Known Allergies Allergy Verified 09/24/18 18:51 - Home Medications Home Medications: Ambulatory Orders Aspirin [Aspirin EC] 81 mg PO HS 09/24/18 Metformin HCl [Glucophage] 500 mg PO BID 09/24/18 Tamsulosin HCl [Flomax] 0.4 mg PO BID 09/24/18 Valsartan/Hydrochlorothiazide [Valsartan-Hctz 160-25 mg Tab] 1 each PO DAILY 11/11 Physical Exam-Neuro Vital Signs: Vital Signs Temperature 97.8 F 09/27/18 20:24 Pulse Rate 58 L 09/27/18 20:24 Respiratory Rate 21 H 09/27/18 20:24 Blood Pressure 130/67 09/27/18 20:24 O2 Sat by Pulse Oximetry (%) 96 09/27/18 20:24 Labs: CBC, BMP 09/26/18 08:23 09/26/18 08:23 INR, PTT INR 1.16 (0.82-1.09) 09/26/18 08:23 Assessment/Plan cc Episode of Passing out HPI :77 year old male history of DM,HTN, BPH , and Lyme disease. Patient has episode of passing out x2 in last three days. Patient has one episode in past. He was about to go for stress test today and he has one more brief episode of passing out. Patient has episode when he felt whole room was spinning and he did have LOC. He also did have one episode of vomiting. He denies any headhace, dysphagia, dysarthria, diplopia, weakness or seizure like activity. there is no tonic clonic activity. his ct head and carotid ultrasound is normal. He was found to have renal subscapular hematoma and rib fracture. PAST MEDICAL HISTORY:HTN, BPH, DM, PAST SURGICAL HISTORY:Cholecystectomy Social History: Smoking:denies Alcohol:rarely Drugs:denies Family History: AllergiesNKDA No Known Allergies Allergy (Verified 09/24/18 18:51) HOME MEDICATIONS: Home Medications Medication Instructions Recorded Aspirin [Aspirin EC] 81 mg PO HS 09/24/18 Metformin HCl [Glucophage] 500 mg PO BID 09/24/18 Tamsulosin HCl [Flomax] 0.4 mg PO BID 09/24/18 Valsartan/Hydrochlorothiazide 1 each PO DAILY 09/24/18 [Valsartan-Hctz 160-25 mg Tab] FH, and ROS was reviewed in chart NEUROLOGICAL EXAMIANTION Alert oriented x 3, speech is normal eomi, pupils reactive, no face asymmetry,vf normal by confrontation face sensation and hearing isnormal FTN, HTS is normal, no nystagmus is seen 5/5 all four ext sensation and reflex are normal ct head and carotid ultrasound is normal Assessment: Recurrent episode of syncope, There is no evidence of seizure, stroke . ct head and carotid ultrasound is normal. There is no evidence of tonic clonic activity, tongue bite, incontinence or post ictal confusion suggestive of seizure. 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
[2018-09-28] MEDS: INSULIN SLIDING SCALE (NOVOLOG) 1 VIAL SQ SCH ×4 (06:39→21:25)
[2018-09-28] MEDS ORDERED: LACTATED RINGERS SOLUTION 1000 ML INFUS.BAG IV ONE (07:17)
--- NOTE | 2018-09-28 07:21 | PN ---
Physical Exam: SUBJECTIVE: Patient seen and examined; no events reported to me from overnight. Remains afebrile and hemodynamically stable. No further syncope. Labs were drawn during RR but are not posting under his chart; were ordered by resident team; will investigate. This monring labs pending TSH wnl Initial part of the MIBI shows that he has posterior lateral defect that is moderate sized/moderate intensity. Discussed with his town clerk. Given his significant syncope and risk factors he will be transferred to [facility] tomorrow AM for cath and EP study. Transfer being coordinated by CV. 10 sys ROS done and negative aside from HPI OBJECTIVE: Vital Signs Period Temp Pulse Resp BP Sys/Rob Pulse Ox Last 24 Hr 97.2 F-99.2 F 51-63 16-21 110-140/59-80 95-96 GENERAL: The patient is awake, alert, and fully oriented, in no acute distress. HEAD: Normal with no signs of trauma. EYES: PERRL, extraocular movements intact, sclera anicteric, conjunctiva clear. No ptosis. ENT: Ears normal, nares patent, oropharynx clear without exudates, moist mucous membranes. NECK: Trachea midline, full range of motion, supple. LUNGS: Breath sounds equal, clear to auscultation bilaterally, no wheezes HEART: Regular rate and rhythm, S1, S2 without murmur, rub or gallop. ABDOMEN: Soft, nontender, nondistended, normoactive bowel sounds, no guarding, no rebound, no hepatosplenomegaly, no masses. EXTREMITIES: 2+ pulses, warm, well-perfused, no edema. NEUROLOGICAL: Cranial nerves II through XII grossly intact. PSYCH: Normal mood, normal affect. SKIN: Warm, dry, normal turgor, no rashes or lesions noted Laboratory Results - last 24 hr 09/27/18 09/27/18 09/27/18 10:39 17:05 17:50 POC Glucometer 178 [id number] TSH 1.35 09/27/18 09/28/18 21:24 05:50 POC Glucometer 181 153 TSH Active Medications Generic Name Dose Route Start Last Admin Trade Name Freq PRN Reason Stop Dose Admin Acetaminophen 650 mg 09/26/18 15:10 09/26/18 15:56 Tylenol - PO 650 mg Q6H PRN Administration PAIN LEVEL 6-10 Docusate Sodium 300 mg 09/27/18 22:00 09/27/18 21:24 Colace - PO 300 mg HS STEVEN Administration Hydrochlorothiazide 25 mg 09/25/18 10:00 09/27/18 11:30 Hctz - PO 25 mg DAILY STEVEN Administration Insulin Aspart 1 vial 09/25/18 07:00 09/28/18 06:39 Novolog Vial Sliding Scale - SQ Not Given ACHS COUNT INCLUDES THE [facility] Protocol Lactated Ringer's 60 ml 09/28/18 07:17 Lactated Ringers Solution IV 09/28/18 07:18 NOW ONE Oxycodone HCl 5 mg 09/26/18 16:59 Roxicodone - PO Q6H PRN PAIN LEVEL 6-10 Polyethylene Glycol 17 gm 09/27/18 22:00 09/27/18 21:30 Miralax (For Daily Use) - PO 17 grams BID STEVEN Administration Tamsulosin HCl 0.4 mg 09/25/18 08:30 09/27/18 21:25 Flomax - PO 0.4 mg BID@0830,2200 STEVEN Administration Valsartan 160 mg 09/25/18 10:00 09/27/18 16:23 Diovan - PO Not Given DAILY STEVEN ASSESSMENT/PLAN: 1) Syncope, severe and recurring -Recurring; cardiology and neurology following. Awaiting their input and appreciate their presence on case. -No recurring CP; MIBI shows on resting portion (other portion not completed) a posteriorlateral defect moderate sie moderate intensity. Given risk factors and overall presentation he is being transferred to [facility] for further tx and monitoring. -Neurology consult noted; appreciate their input -Continuing to monitor on telemetry -Echo, duplex reviewed. -Fall precautions 2) Hematuria 2/2 R-subcapsular hematoma -Trend CBC; stable. Pain controlled. Due to fall 2/2 syncope -Trend CBC; has been stable. OP followup recommended. 3) Rib Fractures -Ribs 9-10 displaced, 11 non-displaced. -No s/s PTX; pain controlled. Incentive spirometry 4) BPH -Continue tamsulosin 5) HTN -Negative orthostatics; continue meds as scheduled without changes 6) H/O Lyme Disease -No new issues 7) Borderline bradycardia -Trending in low 50s; manage per CV. Does show chronotropic response. asx. Full Code Visit type - Emergency Visit Emergency Visit: No - New Patient This patient is new to me today: No - Critical Care Critical Care patient: No
[2018-09-28 08:35] LABS: ALBUMIN 3.4 g/dl (3.4-5.0); ALK PHOS 75 U/L (45-117); ANION GAP 7 MMOL/L (8-16); BILIRUBIN,TOTAL 1.2 mg/dL (0.2-1); BLOOD UREA NITROGEN 23 mg/dL (7-18); CALCIUM 8.5 mg/dL (8.5-10.1); CHLORIDE 107 mmol/L (98-107); CO2 28 mmol/L (21-32); CREATININE 0.8 mg/dL (0.55-1.3); GLUCOSE,RANDOM 147 mg/dL (74-106); N-TERMINAL BNP 23.3 pg/ml (5-450); POTASSIUM 3.9 mmol/L (3.5-5.1); SGOT/AST 20 U/L (15-37); SGPT/ALT 30 U/L (13-61); SODIUM 142 mmol/L (136-145); TOT PROT 5.9 g/dl (6.4-8.2)
[2018-09-28] MEDS: TAMSULOSIN HCL 0.4 MG CAP PO SCH ×2 (08:58→21:25)
[2018-09-28] MEDS: HYDROCHLOROTHIAZIDE 25 MG TABLET (FP) PO SCH (09:43)
[2018-09-28] MEDS: POLYETHYLENE GLYCOL 3350 119 GM BTL PO SCH ×3 (09:43→21:25)
[2018-09-28] MEDS: VALSARTAN 160 MG TABLET (UD) PO SCH ×2 (09:43→13:25)
[2018-09-28] MEDS ORDERED: REGADENOSON 0.4 MG/5 ML PRE-FILLED SYRINGE IVPUSH ONE ×2 (10:08→10:45)
[2018-09-28 11:10] LABS: BASO % 0.5 % (0-2.0); EOS % 1.8 % (0-4.5); HEMATOCRIT 39.4 % (35.4-49); HEMOGLOBIN 13.4 GM/dL (11.7-16.9); LYMPH % 19.8 % (8-40); MCH 29.5 pg (25.7-33.7); MEAN CELL VOLUME 86.8 fl (80-96); MEAN PLT VOLUME 9.1 fl (7.5-11.1); NEUT % 66.9 % (42.8-82.8); PLATELET COUNT 165 K/MM3 (134-434); RBC 4.54 M/mm3 (4.00-5.60); WHITE BLOOD COUNT 6.2 K/mm3 (4.0-10.0)
--- NOTE | 2018-09-28 11:55 | PN ---
Progress Note, Physician History of Present Illness: The patient is a 77 year old male, with a significant PMH of HTN, Lyme disease ( diagnosed in May) and enlarged prostate, who presents to the emergency department with an episode of vertigo that occurred 2 hours ago. The patient states he bent down to get something in the bathroom when he suddenly felt like the whole room was spinning. The patient admits to losing consciousness for a few seconds, falling and apparently hitting right sided body something within the bathroom. Family found patient conscious without evidence of seizure activity or incontinence. He experienced 1 episode of vomiting after the incident. The patient states this has never happened to him before and is currently complaining of right sided rib pain. He mentions he usually takes aspirin (81 mg) everyday but didnt take it today. The patient denies chest pain, shortness of breath and headache. Denies fever, chills, nausea, vomit, diarrhea and constipation. Allergies: NKDA Past surgical history: None reported Social history: None reported PCP: None reported - Current Medication List Current Medications: Active Medications Acetaminophen (Tylenol -) 650 mg PO Q6H PRN PRN Reason: PAIN LEVEL 6-10 Last Admin: 09/26/18 15:56 Dose: 650 mg Docusate Sodium (Colace -) 300 mg PO HS [facility] Last Admin: 09/27/18 21:24 Dose: 300 mg Hydrochlorothiazide (Hctz -) 25 mg PO DAILY [facility] Last Admin: 09/28/18 09:43 Dose: Not Given Lactated Ringer's (Lactated Ringers Solution) 1,000 ml in 1,000 mls @ 75 mls/ hr IV ASDIR [facility] Insulin Aspart (Novolog Vial Sliding Scale -) 1 vial SQ [facility]; Protocol Last Admin: 09/28/18 06:39 Dose: Not Given Oxycodone HCl (Roxicodone -) 5 mg PO Q6H PRN PRN Reason: PAIN LEVEL 6-10 Polyethylene Glycol (Miralax (For Daily Use) -) 17 gm PO BID [facility] Last Admin: 09/28/18 09:43 Dose: Not Given Tamsulosin HCl (Flomax -) 0.4 mg PO BID@0830,2200 [facility] Last Admin: 09/28/18 08:58 Dose: Not Given Valsartan (Diovan -) 160 mg PO DAILY [facility] Last Admin: 09/28/18 09:43 Dose: Not Given - Objective Vital Signs: Vital Signs Temperature 97.7 F 09/28/18 09:30 Pulse Rate 63 09/28/18 09:30 Respiratory Rate 20 09/28/18 09:30 Blood Pressure 124/67 09/28/18 09:30 O2 Sat by Pulse Oximetry (%) 97 09/28/18 08:08 Eyes: Yes: WNL, Conjunctiva Clear, EOM Intact HENT: Yes: WNL, Atraumatic, Normocephalic Neck: Yes: WNL, Supple, Trachea Midline Cardiovascular: Yes: WNL, Regular Rate and Rhythm Respiratory: Yes: WNL, Regular, CTA Bilaterally Gastrointestinal: Yes: WNL, Normal Bowel Sounds Genitourinary: Yes: WNL Musculoskeletal: Yes: WNL Extremities: Yes: WNL Edema: No Integumentary: Yes: WNL Neurological: Yes: WNL, Alert, Oriented ...Motor Strength: WNL Psychiatric: Yes: WNL Labs: CBC, BMP 09/28/18 07:30 09/28/18 07:30 INR, PTT INR 1.16 (0.82-1.09) 09/26/18 08:23 Problem List - Problems (1) Multiple rib fractures Code(s): S22.49XA - MULTIPLE FRACTURES OF RIBS, UNSP SIDE, INIT FOR CLOS FX Qualifiers: Encounter type: initial encounter Fracture type: closed Laterality: right Qualified Code(s): S22.41XA - Multiple fractures of ribs, right side, initial encounter for closed fracture (2) Renal hematoma, right Code(s): S37.011A - MINOR CONTUSION OF RIGHT KIDNEY, INITIAL ENCOUNTER Qualifiers: Encounter type: initial encounter Qualified Code(s): S37.011A - Minor contusion of right kidney, initial encounter (3) Syncope Code(s): R55 - SYNCOPE AND COLLAPSE Qualifiers: Syncope type: unspecified Qualified Code(s): R55 - Syncope and collapse Assessment/Plan - Problems (1) HTN (hypertension) Assessment/Plan: On valsartan and HCTZ; lower doess today post-syncope. Code(s): I10 - ESSENTIAL (PRIMARY) HYPERTENSION (2) Multiple rib fractures Code(s): S22.49XA - MULTIPLE FRACTURES OF RIBS, UNSP SIDE, INIT FOR CLOS FX Qualifiers: Encounter type: initial encounter Fracture type: closed Laterality: right Qualified Code(s): S22.41XA - Multiple fractures of ribs, right side, initial encounter for closed fracture (3) Renal hematoma, right Code(s): S37.011A - MINOR CONTUSION OF RIGHT KIDNEY, INITIAL ENCOUNTER Qualifiers: Encounter type: initial encounter Qualified Code(s): S37.011A - Minor contusion of right kidney, initial encounter (4) Syncope Assessment/Plan: Pt has hx syncope: 1st episode 5 years ago while going to the bathroom. 2nd episode last week while brushing teeth-->fall and fractured ribs renal hematoma 3rd while seated in wheelchair after receiving SestaMIBI does and having had rest nuclear imaging taken he felt dizzy and "burning" on the top of his head. He slumped in the chiar; he recovered quickly. Glucose was not low; BP WNL; mild bradycardia. Carotid artery US no stenosis. ECHO: normal LVEF. Resting MIBI post lateral defect -moderate size moderate intensity Neuro - no neuro w/u needed , no neurologic couse of syncope - as per neuro consult taking in to consideration significant syncope - rib fx, renal hematoma and syncope while sitting as well as baseline bradycardia. d/w and the patient optimal rx course. Family reluctant to proceed with stress test due to fear of additional syncope. Will transfer for c. cath and EPS at [facility]. Code(s): R55 - SYNCOPE AND COLLAPSE Qualifiers: Syncope type: unspecified Qualified Code(s): R55 - Syncope and collapse (5) Prostate disorder Assessment/Plan: Pt has great difficulty urinating; f/u with . Code(s): N42.9 - DISORDER OF PROSTATE, UNSPECIFIED (6) Diabetes Code(s): E11.9 - TYPE 2 DIABETES MELLITUS WITHOUT COMPLICATIONS
[2018-09-28] MEDS ORDERED: LACTULOSE 20 GM/30 ML UDC (FOR ORAL USE ONLY) PO ONE (12:57)
[2018-09-28] MEDS: LACTATED RINGERS SOLUTION 1,000 ML/1,000 ML INFUS.BAG IV SCH (13:09)
--- NOTE | 2018-09-28 15:46 | EKG ---
Test Reason : Blood Pressure : / mmHG Vent. Rate : 055 BPM Atrial Rate : 055 BPM P-R Int : 160 ms QRS Dur : 100 ms QT Int : 444 ms P-R-T Axes : 020 047 025 degrees QTc Int : 424 ms SINUS BRADYCARDIA OTHERWISE NORMAL ECG WHEN COMPARED WITH ECG OF 27-SEP-2018 10:45, NO SIGNIFICANT CHANGE WAS FOUND Confirmed by NIVIA PLAZA MD ([id number]) on 09/28/2018 3:46:42 PM Referred By: Physician Emergency Dept Confirmed By:NIVIA PLAZA MD
[2018-09-28] MEDS: DOCUSATE SODIUM 100 MG CAPSULE (FP) PO SCH (21:24)
[2018-09-29] MEDS: INSULIN SLIDING SCALE (NOVOLOG) 1 VIAL SQ SCH ×2 (06:17→12:48)
[2018-09-29 07:04] LABS: BASO % 0.4 % (0-2.0); EOS % 2.3 % (0-4.5); HEMATOCRIT 37.5 % (35.4-49); HEMOGLOBIN 12.9 GM/dL (11.7-16.9); LYMPH % 17.1 % (8-40); MCH 29.9 pg (25.7-33.7); MCHC 34.3 g/dl (32.0-35.9); MEAN CELL VOLUME 87.2 fl (80-96); MONO % 11.4 % (3.8-10.2); NEUT % 68.8 % (42.8-82.8); PLATELET COUNT 168 K/MM3 (134-434); RBC 4.31 M/mm3 (4.00-5.60); RDW 13.8 % (11.9-15.9); WHITE BLOOD COUNT 6.4 K/mm3 (4.0-10.0)
[2018-09-29 07:34] LABS: ALBUMIN 3.2 g/dl (3.4-5.0); ALK PHOS 78 U/L (45-117); ANION GAP 9 MMOL/L (8-16); BLOOD UREA NITROGEN 27 mg/dL (7-18); CALCIUM 8.4 mg/dL (8.5-10.1); CHLORIDE 101 mmol/L (98-107); CO2 29 mmol/L (21-32); CREATININE 0.8 mg/dL (0.55-1.3); GLUCOSE,RANDOM 158 mg/dL (74-106); POTASSIUM 3.8 mmol/L (3.5-5.1); SGOT/AST 22 U/L (15-37); SGPT/ALT 34 U/L (13-61); SODIUM 139 mmol/L (136-145); TOT PROT 5.5 g/dl (6.4-8.2)
--- NOTE | 2018-09-29 08:08 | DS ---
Physical Exam: SUBJECTIVE: Patient seen and examined; being transferred to [facility] for cath and EP study. No issues reported to me from overnight; remains afebrile and hemodynamically stable. In good spirits. No further syncope or CP. OBJECTIVE: Vital Signs Period Temp Pulse Resp BP Sys/Rob Pulse Ox Last 24 Hr 97.4 F-98.6 F 54-66 17-20 118-142/63-69 95-96 PHYSICAL EXAM GENERAL: The patient is awake, alert, and fully oriented, in no acute distress. HEAD: Normal with no signs of trauma. EYES: PERRL, extraocular movements intact, sclera anicteric, conjunctiva clear. ENT: Ears normal, nares patent, oropharynx clear without exudates, moist mucous membranes. NECK: Trachea midline, full range of motion, supple. LUNGS: Breath sounds equal, clear to auscultation bilaterally, no wheezes, no crackles, no accessory muscle use. HEART: Regular rate and rhythm, S1, S2 without murmur, rub or gallop. ABDOMEN: Soft, nontender, nondistended, normoactive bowel sounds EXTREMITIES: 2+ pulses, warm, well-perfused, no edema. NEUROLOGICAL: Cranial nerves II through XII grossly intact. Normal speech, gait not observed. PSYCH: Normal mood, normal affect. SKIN: Warm, dry, normal turgor, no rashes or lesions noted. LABS Laboratory Results - last 24 hr 09/28/18 09/28/18 09/28/18 07:30 07:30 17:43 WBC 6.2 RBC 4.54 Hgb 13.4 Hct 39.4 MCV 86.8 MCH 29.5 MCHC 34.0 RDW 14.0 Plt Count 165 MPV 9.1 Absolute Neuts (auto) 4.2 Neutrophils % 66.9 Lymphocytes % 19.8 Monocytes % 11.0 H Eosinophils % 1.8 Basophils % 0.5 Nucleated RBC % 0 Sodium 142 Potassium 3.9 Chloride 107 Carbon Dioxide 28 Anion Gap 7 L BUN 23 H Creatinine 0.8 Creat Clearance w eGFR > 60 POC Glucometer 189 Random Glucose 147 H Calcium 8.5 Magnesium 2.0 Total Bilirubin 1.2 H AST 20 ALT 30 Alkaline Phosphatase 75 Troponin I < 0.02 B-Natriuretic Peptide 23.3 Total Protein 5.9 L Albumin 3.4 09/28/18 09/29/18 09/29/18 21:24 05:30 05:40 WBC RBC Hgb Hct MCV MCH MCHC RDW Plt Count MPV Absolute Neuts (auto) Neutrophils % Lymphocytes % Monocytes % Eosinophils % Basophils % Nucleated RBC % Sodium 139 Potassium 3.8 Chloride 101 Carbon Dioxide 29 Anion Gap 9 BUN 27 H Creatinine 0.8 Creat Clearance w eGFR > 60 POC Glucometer 198 165 Random Glucose 158 H Calcium 8.4 L Magnesium 2.0 Total Bilirubin 1.0 AST 22 ALT 34 Alkaline Phosphatase 78 Troponin I B-Natriuretic Peptide Total Protein 5.5 L Albumin 3.2 L HOSPITAL COURSE: Date of Admission:09/25/18 Date of Discharge: 09/29/18 1) Syncope, severe and recurring *Presented with severe syncope leading to fall causing rib fractures; this is recurring issue. Due to this prompted admission. -Neurology saw: clear from neuro perspective and recommended further CV workup -Echo, carotid doppler normal. -CV saw; patient is being transferred to [facility] for cath and EP testing. -No recurring CP; MIBI shows on resting portion (other portion not completed) a posteriorlateral defect moderate sie moderate intensity. -Neurology consult noted; appreciate their input -Continuing to monitor on telemetry; no AVB seen. Low grade bradycardia trending in 50s with chronotropic tresponse. -Fall precautions 2) Hematuria 2/2 R-subcapsular hematoma -Trend CBC; stable. Pain controlled. Due to fall 2/2 syncope -Trend CBC; has been stable. OP followup recommended. No further issues from admission 3) Rib Fractures -Ribs 9-10 displaced, 11 non-displaced. -No s/s PTX; pain controlled. Incentive spirometry 4) BPH -Continue tamsulosin 5) HTN -Negative orthostatics; continue meds as scheduled without changes 6) H/O Lyme Disease -No new issues 7) Borderline bradycardia -Trending in low 50s; manage per CV. Does show chronotropic response. asx. Full Code Minutes to complete discharge: 45 Discharge Summary Reason For Visit: FX. RIBS, HEMATOMA RIGHT KIDNEY. Current Active Problems Diabetes (Acute) HTN (hypertension) (Acute) Hematuria (Acute) Multiple rib fractures (Acute) Prostate disorder (Acute) Renal hematoma, right (Acute) Syncope (Acute) Condition: Stable - Instructions Diet, Activity, Other Instructions: NPO after transfer for afternoon cath and EP study Resume diet post cath Further instructions per accepting facility Disposition: TRANSFER ACUTE CARE/OTHER HOSP - Home Medications Comprehensive Discharge Medication List: Ambulatory Orders Aspirin [Aspirin EC] 81 mg PO HS 09/24/18 Metformin HCl [Glucophage] 500 mg PO BID 09/24/18 Tamsulosin HCl [Flomax] 0.4 mg PO BID 09/24/18 Valsartan/Hydrochlorothiazide [Valsartan-Hctz 160-25 mg Tab] 1 each PO DAILY 11/11 This patient is new to me today: No Emergency Visit: No Critical Care patient: No - Discharge Referral [facility]erred to [facility] No
--- NOTE | 2018-09-29 09:28 | PN ---
Progress Note, Physician Chief Complaint: Pt A&OX3;lying in bed; is at bedside; no further dizziness; no chest pain. History of Present Illness: The patient is a 77 year old male, with a significant PMH of HTN, Lyme disease ( diagnosed in May; -->4 months of antibiotics; his believes his evergy level decreased since the diagnosis) and enlarged prostate, who presents to the emergency department with an episode of vertigo that occurred 2 hours ago. The patient states he bent down to get something in the bathroom when he suddenly felt like the whole room was spinning. The patient admits to losing consciousness for a few seconds, falling and apparently hitting right sided body something within the bathroom. Family found patient conscious without evidence of seizure activity or incontinence. He experienced 1 episode of vomiting after the incident. The patient states this has never happened to him before and is currently complaining of right sided rib pain. He mentions he usually takes aspirin (81 mg) everyday but didnt take it today. The patient denies chest pain, shortness of breath and headache. Denies fever, chills, nausea, vomit, diarrhea and constipation. Allergies: NKDA - Current Medication List Current Medications: Active Medications Acetaminophen (Tylenol -) 650 mg PO Q6H PRN PRN Reason: PAIN LEVEL 6-10 Last Admin: 09/26/18 15:56 Dose: 650 mg Docusate Sodium (Colace -) 300 mg PO [facility] Last Admin: 09/28/18 21:24 Dose: 300 mg Lactated Ringer's (Lactated Ringers Solution) 1,000 ml in 1,000 mls @ 75 mls/ hr IV ASDIR [facility] Last Admin: 09/28/18 13:09 Dose: 75 mls/hr Insulin Aspart (Novolog Vial Sliding Scale -) 1 vial SQ [facility]; Protocol Last Admin: 09/29/18 06:17 Dose: Not Given Oxycodone HCl (Roxicodone -) 5 mg PO Q6H PRN PRN Reason: PAIN LEVEL 6-10 Polyethylene Glycol (Miralax (For Daily Use) -) 17 gm PO BID [facility] Last Admin: 09/28/18 21:25 Dose: 17 grams Tamsulosin HCl (Flomax -) 0.4 mg PO BID@0830,2200 [facility] Last Admin: 12/05/18 21:25 Dose: 0.4 mg Valsartan (Diovan -) 160 mg PO DAILY [facility] Last Admin: 09/28/18 13:25 Dose: 160 mg - Objective Vital Signs: Vital Signs Temperature 98.6 F 09/29/18 06:00 Pulse Rate 60 09/29/18 06:00 Respiratory Rate 18 09/29/18 06:00 Blood Pressure 118/66 09/29/18 06:00 O2 Sat by Pulse Oximetry (%) 95 09/29/18 06:00 Labs: CBC, BMP 09/29/18 05:30 09/29/18 05:30 INR, PTT INR 1.16 (0.82-1.09) 09/26/18 08:23 Problem List - Problems (1) HTN (hypertension) Assessment/Plan: On valsartan 160 mg daily. Code(s): I10 - ESSENTIAL (PRIMARY) HYPERTENSION (2) Multiple rib fractures Code(s): S22.49XA - MULTIPLE FRACTURES OF RIBS, UNSP SIDE, INIT FOR CLOS FX Qualifiers: Encounter type: initial encounter Fracture type: closed Laterality: right Qualified Code(s): S22.41XA - Multiple fractures of ribs, right side, initial encounter for closed fracture (3) Renal hematoma, right Code(s): S37.011A - MINOR CONTUSION OF RIGHT KIDNEY, INITIAL ENCOUNTER Qualifiers: Encounter type: initial encounter Qualified Code(s): S37.011A - Minor contusion of right kidney, initial encounter (4) Syncope Assessment/Plan[facility] followed by EP evaluation. Code(s): R55 - SYNCOPE AND COLLAPSE Qualifiers: Syncope type: unspecified Qualified Code(s): R55 - Syncope and collapse (5) Prostate disorder Code(s): N42.9 - DISORDER OF PROSTATE, UNSPECIFIED (6) Diabetes Code(s): E11.9 - TYPE 2 DIABETES MELLITUS WITHOUT COMPLICATIONS
[2018-09-29] MEDS: LACTATED RINGERS SOLUTION 1,000 ML/1,000 ML INFUS.BAG IV SCH (10:38)
[2018-09-29] MEDS: POLYETHYLENE GLYCOL 3350 119 GM BTL PO SCH (10:38)
[2018-09-29] MEDS: VALSARTAN 160 MG TABLET (UD) PO SCH (10:38)
[2018-09-29] MEDS: TAMSULOSIN HCL 0.4 MG CAP PO SCH (10:38)
[2018-09-29 14:39] VITALS: BP 122/65; PULSE 64; TEMP 99.1
--- NOTE | 2018-12-09 20:32 | EKG ---
Test Reason : Blood Pressure : / mmHG Vent. Rate : 050 BPM Atrial Rate : 050 BPM P-R Int : 162 ms QRS Dur : 092 ms QT Int : 448 ms P-R-T Axes : 037 043 037 degrees QTc Int : 408 ms SINUS BRADYCARDIA OTHERWISE NORMAL ECG WHEN COMPARED WITH ECG OF 24-SEP-2018 19:11, NO SIGNIFICANT CHANGE WAS FOUND Confirmed by NIVIA PLAZA MD ([id number]) on 12/09/2018 8:32:38 PM Referred By: Physician Emergency Dept Confirmed By:NIVIA PLAZA MD
== END 2018-09-29 16:42 | disposition short-term general hospital (02) | DRG 184 ==
LOC: FER 18:32 → FM/S 09-25 00:33 → UNDOADMOB 09-25 00:33 → INTOOBSV 09-25 00:33 → FM/S 09-25 01:50 → OBSVTOIN 09-25 16:11 → FM/S 09-25 19:44 → J2W 09-27 11:36 → J4W 09-27 18:50
PROVIDERS: ADMIT Internal Medicine; ATTEND Internal Medicine
DX: S22.41XA Multiple fractures of ribs, right side, initial encounter for closed fracture (principal); S37.011A Minor contusion of right kidney, initial encounter; W19.XXXA Unspecified fall, initial encounter; Y93.9 Activity, unspecified; Y92.89 Other specified places as the place of occurrence of the external cause; Y99.9 Unspecified external cause status; R55 Syncope and collapse; R31.9 Hematuria, unspecified; N40.0 Benign prostatic hyperplasia without lower urinary tract symptoms; I10 Essential (primary) hypertension; R00.1 Bradycardia, unspecified; E11.9 Type 2 diabetes mellitus without complications
CPT/HCPCS: 36415; 70450-TC; 71260-TC; 74177-TC; 80048; 80053; 80061; 81003; 81015; 82550; 82962; 83735; 83880; 84443; 84484; 85025; 85027; 85610; 85730; 86850; 86900; 86901; 93005; 93010; 93306-TC; 93880-TC; 99285-25; A9502; G0378; J7030